=== PATIENT | male | born 1965 | race Caucasian/White ===

== ENCOUNTER 2018-03-07 22:46 | Emergency (ER) | payer MEDICAID, OTHER ==
[2018-03-07] MEDS: FLUORESCEIN STRIP LEFT EYE (23:31)
[2018-03-07] MEDS: TETRACAINE 0.5% 4 ML OPH LEFT EYE (23:31)
[2018-03-08] MEDS: DIPHTH/TET/ACEL PERTUSS (ADULT) 0.5 ML VIAL IM* (00:20)
== END 2018-03-08 00:25 | disposition home or self-care (01) ==
LOC: FTE 03-08 00:25
DX: T15.02XA Foreign body in cornea, left eye, initial encounter (principal); X58.XXXA Exposure to other specified factors, initial encounter; Y92.002 Bathroom of unspecified non-institutional (private) residence as the place of occurrence of the external cause; Z23 Encounter for immunization
CPT/HCPCS: 90471; 90715; 99283-25